=== PATIENT | female | born 1980 | race American Indian/Alaskan Native ===

== ENCOUNTER 2016-10-11 08:13 | Day surgery (SDC) | payer MEDICAID ==
--- NOTE | 2016-10-10 11:15 | Anesthesia Consultation ---
Anesthesia Consult and Med Hx Date of service: 10/11/16 - Airway Anesthetic Teeth Evaluation: Good ROM Head & Neck: Adequate Mental/Hyoid Distance: Adequate Mallampati Class: Class I Intubation Access Assessment: Good - Pulmonary Exam CTA: Yes - Cardiac Exam Cardiac Exam: RRR - Pre-Operative Health Status ASA Pre-Surgery Classification: ASA2 Proposed Anesthetic Plan: General - Gastrointestinal Hx Gastroesophageal Reflux Disease: Yes (gastroparesis ) - Endocrine Hx Insulin Dependent Diabetes: Yes - Hematic Hx Anemia: Yes Hx Sickle Cell Disease: Yes (trait only)
[2016-10-10 11:47] LABS: Anion Gap 16 mmol/L; Blood Urea Nitrogen 6 mg/dL (7-17); Calcium 8.9 mg/dL (8.4-10.2); Carbon Dioxide 29 mmol/L (22-30); Chloride 96.8 mmol/L (98-107); Glucose 311 mg/dL (65-100); Potassium 3.2 mmol/L (3.6-5.0); Sodium 139 mmol/L (137-145)
[2016-10-10 12:02] LABS: Basophils % (Auto) 1.3 % (0.0-1.8); Eosinophils % (Auto) 4.7 % (0.0-4.3); Hematocrit 28.8 % (30.3-42.9); Hemoglobin 8.8 gm/dl (10.1-14.3); Mean Corpuscular HGB Conc 31 % (30-34); Platelet Count 255 K/mm3 (140-440); White Blood Count 6.6 K/mm3 (4.5-11.0)
[2016-10-10 12:06] LABS: Mean Corpuscular Hemoglobin 20 pg (28-32); Mean Corpuscular Volume 67 fl (79-97); Red Cell Distribution Width 20.5 % (13.2-15.2)
--- NOTE | 2016-10-11 07:59 | Short Stay Summary ---
Short Stay Documentation Date of service: 10/11/16 Narrative H&P: Patient is a 35 year old who presents today for elective sterilization. She is status post and IUFD at 23 weeks 3 months ago. She presents today for elective sterilization - History H&P: obtained from office Past Medical History: diabetes (Type 1 poorly controlled), other (depression, gastroparesis) Past Surgical History: ( x 2) Social history: single - Allergies and Medications Current Medications: Allergies No Known Allergies Allergy (Verified 10/06/16 14:21) Home Medications Medication Instructions Recorded Confirmed Last Taken Type Insulin NPL/Insulin Lispro 10 units SQ BID 10/06/16 10/06/16 Unknown History [HumaLOG Mix 75-25 Kwikpen] Metoclopramide [Reglan TAB] 5 ml PO AC 10/06/16 10/06/16 Unknown History Active Medications Famotidine (Pepcid) 20 mg PO PREOP NR Stop: 10/11/16 23:59 Sodium Chloride (Nacl 0.9% 1000 Ml) 1,000 mls @ 42 mls/hr IV DIRECT HARDEEP Midazolam HCl (Versed) 2 mg IV PREOP NR Stop: 10/11/16 23:59 - Physical exam HEENT: Atraumatic Lungs: Clear to auscultation, Normal air movement Breasts: deferred Heart: Regular rate, Normal S1, Normal S2 Gastrointestinal: normal, normoactive bowel sounds Female Genitourinary: normal Rectal Exam: deferred Extremities: no ischemia, No edema - Brief post op/procedure progress note Date of procedure: 10/11/16 Pre-op diagnosis: Elective sterilization Post-op diagnosis: same (with extensive pelvic adhesions) Procedure: Diagnostic laparoscopy, lysis of adhesions, ligation of left tube Anesthesia: GETA Findings: Extensive anterior abdominal wall and pelvic adhesions. Right adnexa was buried in adhesions and covered by bowel, midline anterior wall adhesion connecting to the omentum. Surgeon: DERRICK ORNELAS Estimated blood loss: 50-100ml Pathology: none Condition: stable - Hospital course Hospital course: unremarkable - Disposition Condition at discharge: Good Disposition: DISCHARGED TO HOME OR SELFCARE Short Stay Discharge Plan Activity: advance as tolerated Weight Bearing Status: Weight Bear as Tolerated Diet: regular Wound: keep clean and dry Follow up with: DERRICK ORNELAS MD [Primary Care Provider] - 14 Days Prescriptions: HYDROcodone/APAP 5-325 [[place] 5/325] 1 each PO Q6HR PRN #20 tablet PRN Reason: Pain Ibuprofen [Motrin] 800 mg PO Q8HR PRN #40 tablet PRN Reason: Pain
[~2016-10-11 08:13] MED LIST: ANCEF/STERILE WATER 2 GM/20 ML 2 GM/20 ML SYRINGE IV NR; PEPCID PO NR; VERSED IV NR
[2016-10-11] MEDS: NACL 0.9% 1000 ML 1,000 ML IV SCH ×2 (10:25→17:31)
[2016-10-11] MEDS ORDERED: DIPRIVAN 10 MG/ML IV ONE (12:54)
[2016-10-11] MEDS ORDERED: DILAUDID ONE (12:54)
--- NOTE | 2016-10-11 13:15 | Anesthesia Day of Surgery ---
Anesthesia Day of Surgery - Day of Surgery Patient Examined: Yes Patient H&P Reviewed: Yes Patient is NPO: Yes
[2016-10-11] MEDS ORDERED: METHYLENE BLUE ONE (13:32)
[2016-10-11] MEDS ORDERED: MARCAINE 0.25% INFILTRATI ONE ×3 (13:32→14:06)
[2016-10-11] MEDS ORDERED: DILAUDID IV PRN (13:51)
[2016-10-11] MEDS ORDERED: ZOFRAN IV PRN (13:51)
[2016-10-11] MEDS ORDERED: ZEMURON IV ONE (13:59)
[2016-10-11] MEDS ORDERED: XYLOCAINE MPF 2% ONE (13:59)
[2016-10-11] MEDS ORDERED: QUELICIN ONE (14:00)
[2016-10-11] MEDS ORDERED: ZOFRAN ONE (14:01)
[2016-10-11] MEDS ORDERED: TORADOL ONE (14:01)
[2016-10-11] MEDS ORDERED: DECADRON ONE (14:01)
[2016-10-11] MEDS ORDERED: NACL 0.9% IR ONE (14:06)
[2016-10-11] MEDS ORDERED: NACL 0.9% 1000 ML 1,000 ML ONE (14:52)
[2016-10-11] MEDS ORDERED: NEOSTIGMINE ONE (14:54)
[2016-10-11] MEDS ORDERED: ROBINUL ONE ×2 (14:54)
--- NOTE | 2016-10-11 15:15 | Post Anesthesia Evaluation ---
- Post Anesthesia Evaluation Patient Participated: Yes Airway Patent: Yes Stable Respiratory Function: Yes Nausea/Vomiting: No Temp > 96.8F: Yes Pain Manageable: Yes Adequeate Hydration: Yes Anesthesia Complications: No Block Receding Appropriately: Not Applicable Patient on Ventilator: No
[2016-10-11 18:00] VITALS: BP 150/89
--- NOTE | 2016-10-11 18:52 | Operative Report ---
PREOPERATIVE DIAGNOSES: Undesired fertility and elective sterilization. POSTOPERATIVE DIAGNOSIS: Undesired fertility and elective sterilization with extensive pelvic adhesions that prohibit completion of the full procedure. SURGEON: Daphnie Feliciano MD PROCEDURE: 1. Diagnostic laparoscopy. 2. Lysis of adhesion. 3. Ligation of the left tube. ANESTHESIA: General. ESTIMATED BLOOD LOSS: Minimal. IV FLUIDS: 1000 mL. SPECIMENS: None. COMPLICATIONS: None. FINDINGS: Extensive anterior abdominal wall to the omentum, adhesions as well as a vertical midline adhesion extending from the umbilicus down to the mid pelvis, also with additional pelvic adhesions throughout the right adnexa was completely unable to be identified due to the abundant adhesions that were burying it underneath the bowel. DESCRIPTION OF PROCEDURE: The patient was taken to the OR with IV running in place. She was appropriately identified as herself. She was given general anesthesia and placed in dorsal lithotomy position and prepped and draped in normal sterile fashion. Attention was turned to the patient's vagina. A speculum was placed into the vagina. The cervix was visualized and grasped with a tenaculum. The acorn cannula was placed into the cervix to provide a means to manipulate the uterus. The speculum was removed. Attention was then turned to the patient's abdomen. The umbilicus was injected with approximately 3 mL of Marcaine. Incision was then made. Through this incision it was attempted to put a 5 mm trocar; however, there was some type of ____ tissue that was preventing the passage of the trocar into the abdominal cavity. After multiple attempts, a decision was made to try it from a different perspective. Therefore, a second incision was made in the left upper quadrant. Through this incision, a 5 mm trocar was placed. The laparoscope confirmed intraabdominal placement. The abdomen was insufflated with CO2 gas of approximately 40 mmHg. Initial survey of the abdomen revealed a large vertical midline adhesion as well as multiple pelvic adhesions of the uterus to the bladder, to the bowel under direct visualization. A second incision was made and port was placed in the left lower quadrant. Through that incision, vigorous attempt was used to take down some of the adhesions that were in the lower portion of the pelvis. The left tube was identified as was the left ovary and followed to the fimbriated end. That portion of tube was then ligated and transected. However, when attempting to find the right tube, the right adnexa appeared to dip down underneath massive adhesions containing bowel, omentum and bladder. Attempts at dissection were made. However, the adhesions appeared to be too extensive and visualization was too difficult. At this point, decision was made to end the surgery. All instruments were removed from the patient's abdomen and pelvis. The CO2 gas was deflated. The skin was then closed with 4-0 Monocryl. The instruments were removed from the patient's vagina as well. The sponge, lap, needle, and instrument counts correct x2. She tolerated the procedure well and taken to recovery in stable condition. JOB# [id number] JUHI/RAHUL
[2016-10-11] MEDS ORDERED: ZOFRAN IV ONE (19:00)
== END 2016-10-11 18:35 | disposition home or self-care (01) ==
LOC: OR 08:13
PROVIDERS: ATTEND Obstetrics & Gynecology
DX: Z30.2 Encounter for sterilization (principal); N73.6 Female pelvic peritoneal adhesions (postinfective); F32.9 Major depressive disorder, single episode, unspecified; E10.43 Type 1 diabetes mellitus with diabetic autonomic (poly)neuropathy; K31.84 Gastroparesis; D57.3 Sickle-cell trait; K21.9 Gastro-esophageal reflux disease without esophagitis; Z79.4 Long term (current) use of insulin
CPT/HCPCS: 36415; 58670; 80048; 82962; 84703; 85025; 86850; 86900; 86901; J0330; J0690; J1100; J1170; J1885; J2250; J2405; J2704; J2710; J7030; J1815; Q9968